=== PATIENT | male | born 1965 | race Caucasian/White ===

== ENCOUNTER 2017-07-08 15:50 | Inpatient (IN) | payer SELFPAY ==
[~2017-07-08] VITALS: Ht 182.9 cm; Wt 78.5 kg
--- NOTE | 2017-07-08 16:02 | NUR ---
BIB AMBULANCE FOR ETOH INTOXICATION. PT IS SLEEPY BUT AROUSES WITH TOUCH. VITAL SIGNS STABLE. PLACED ON CONTINUOUS CARDIAC MONITORING.
[2017-07-08 16:36] LABS: BASOPHILS # (AUTO) 0.1 K/uL (0.0-8.0); BASOPHILS % (AUTO) 1.9 % (0.0-2.0); EOSINOPHILS # (AUTO) 0.1 K/uL (0.0-0.7); EOSINOPHILS % (AUTO) 1.6 % (0.0-7.0); HEMATOCRIT 43.1 % (40-50); HEMOGLOBIN 14.6 G/DL (14.0-18.0); LYMPHOCYTES # (AUTO) 2.1 K/UL (0.8-4.8); LYMPHOCYTES % (AUTO) 32.2 % (20.5-51.5); MEAN CORPUSCULAR HEMOGLOBIN 34.1 UUG (27.0-31.0); MEAN CORPUSCULAR HGB CONC 34 g/dL (32.0-37.0); MEAN CORPUSCULAR VOLUME 100.8 FL (82.0-92.0); MONOCYTES # (AUTO) 0.8 K/UL (0.1-1.30); MONOCYTES % (AUTO) 11.6 % (0.0-11.0); NEUTROPHILS # (AUTO) 3.5 K/UL (1.8-8.9); NEUTROPHILS % (AUTO) 52.7 % (38.5-71.5); PLATELET COUNT (AUTO) 193 K/UL (150-450); RED BLOOD CELL COUNT(AUTO) 4.28 MIL/UL (4.7-6.1); WHITE BLOOD COUNT (AUTO) 6.6 K/UL (4.0-11.2)
[2017-07-08 16:44] LABS: CREATININE 0.8 mg/dL (0.6-1.3); POTASSIUM 3.9 mmol/L (3.5-5.1)
[2017-07-08 16:59] LABS: BILIRUBIN,TOTAL 0.8 mg/dL (0.2-1.0); TOTAL PROTEIN, SERUM 6.6 g/dL (6.4-8.2)
--- NOTE | 2017-07-08 17:14 | NUR ---
PATIENT IN ROOM SLEEPING WITH NO DISTRESS NOTED. ON 2L N/C SATTING AT 97%. NO DISTRESS NOTED.
[2017-07-08] MEDS: IV NS 1000 ML 1,000 ML IV ONE ×2 (17:29→17:30)
[2017-07-08] MEDS ORDERED: IV NS 1000 ML 1,000 ML IV ONE (17:30)
[2017-07-08] MEDS ORDERED: IV NS 1000 ML 1,000 ML IV PRN (18:15)
--- NOTE | 2017-07-08 18:50 | NUR ---
Transfered to 2nd floor Tele via [facility]
--- NOTE | 2017-07-08 18:55 | NUR ---
Received patient from ER, patient is not responding. Vitals recorded, BP recorded as systolic 95/43, patient placed on 4L o2.
[2017-07-08 19:00] VITALS: BP 104/55
[2017-07-08 19:36] VITALS: BP 95/43
[2017-07-08] MEDS ORDERED: IV D5/ 0.9% NACL 1,000 ML IV PRN ×2 (20:15→20:30)
[2017-07-08] MEDS ORDERED: FOLIC ACID 1 MG in IV DEXTROSE 5% 50 ML IV SCH (20:30)
[2017-07-08] MEDS ORDERED: ACETAMINOPHEN 325 MG TABLET PO PRN (20:30)
[2017-07-08] MEDS ORDERED: ONDANSETRON 4 MG/2 ML VIAL IV PRN (20:30)
[2017-07-08] MEDS ORDERED: THIAMINE HCL INJ 100 MG in IV DEXTROSE 5% 50 ML IV SCH (20:30)
[2017-07-08] MEDS: LORAZEPAM 2 MG/1 ML VIAL IV PRN (21:40)
[2017-07-09 00:06] VITALS: BP 125/81
--- NOTE | 2017-07-09 00:39 | NUR ---
RECEIVED PATIENT LETHARGIC IN BED, HE WAS JUST ADMITTED FR ED DUE TO ETOH INTOXICATION AND RHABDOMYOLYSIS. CHANGED IV FLUIDS TO D5 NS AT 100 ML.HR ORDERED. GIVEN IV MEDS ORDERED. CT SCAN BRAIN DONE. PATIENT MENTATION IMPROVED TO ALERT AND ORIENTED X2. GETTING OUT OF BED. BED ALARM TURNED ON. CHECK FROM TIME TO TIME. STARTED ON REG DIET ORDERED. OTHERWISE PT IS SLEEPING AT THIS TIME. KEPT MONITORED. Addendum: 07/10/17 at 0051 by YOUNG MARTINEZ RN GIVEN IV ATIVAN BY THE MARINE ELECT[employer]ICS TECHNICIAN LAST NIGHT ORDERED. SIGNED IN UNDER ANOTHER RN'S ACCOUNT NOTED TO PHARMACIST. DRUG WAS GIVEN TO CORRECT PATIENT DOCUMENTED.
[2017-07-09 04:00] VITALS: BP 122/80
--- NOTE | 2017-07-09 05:30 | NUR ---
NO ALCOHOL WITHDRAWAL NOTED THROUGHOUT THE NIGHT. MENTATION IS MAINTAINED ALERT AND ORIENTED X2-3. VS REMAINED STABLE. KEPT SAFE AND MONITORED.
[2017-07-09 06:35] LABS: BASOPHILS # (AUTO) 0.1 K/uL (0.0-8.0); BASOPHILS % (AUTO) 1.1 % (0.0-2.0); EOSINOPHILS # (AUTO) 0.1 K/uL (0.0-0.7); EOSINOPHILS % (AUTO) 2.2 % (0.0-7.0); HEMOGLOBIN 12.9 G/DL (14.0-18.0); LYMPHOCYTES # (AUTO) 1.8 K/UL (0.8-4.8); LYMPHOCYTES % (AUTO) 37.6 % (20.5-51.5); MEAN CORPUSCULAR HEMOGLOBIN 34.4 UUG (27.0-31.0); MEAN CORPUSCULAR HGB CONC 34 g/dL (32.0-37.0); MEAN CORPUSCULAR VOLUME 101.5 FL (82.0-92.0); MONOCYTES # (AUTO) 0.4 K/UL (0.1-1.30); MONOCYTES % (AUTO) 8.7 % (0.0-11.0); NEUTROPHILS # (AUTO) 2.4 K/UL (1.8-8.9); NEUTROPHILS % (AUTO) 50.4 % (38.5-71.5); PLATELET COUNT (AUTO) 145 K/UL (150-450)
[2017-07-09 06:40] LABS: RED BLOOD CELL COUNT(AUTO) 3.74 MIL/UL (4.7-6.1); WHITE BLOOD COUNT (AUTO) 4.8 K/UL (4.0-11.2)
[2017-07-09 06:53] LABS: CREATININE 0.8 mg/dL (0.6-1.3); MAGNESIUM 1.6 mg/dL (1.8-2.4); PHOSPHOROUS 1.3 mg/dL (2.5-4.9); POTASSIUM 3.2 mmol/L (3.5-5.1)
[2017-07-09] MEDS ORDERED: PANTOPRAZOLE SODIUM 40 MG TABLET.DR PO SCH ×2 (07:00→09:00)
--- NOTE | 2017-07-09 08:26 | NUR ---
pt awake in bed just finished breakfast, asked name pt stated "Michi Garcia" asked , pt stated "[birth year]" asked where pt was pt stated "[facility]" No needs at this time, all safety and comfort measures attended to, call light in reach
[2017-07-09] MEDS ORDERED: MAGNESIUM OXIDE 400 MG TABLET PO ONE (10:15)
[2017-07-09] MEDS ORDERED: POTASSIUM CHLORIDE 20 MEQ TAB.PRT.SR PO ONE (10:30)
[2017-07-09] MEDS: LORAZEPAM 2 MG/1 ML VIAL IV PRN (10:42)
--- NOTE | 2017-07-09 10:45 | NUR ---
TREMORS NOTED, ATIVAN 1MG GIVEN
[2017-07-09 11:39] VITALS: BP 150/88
--- NOTE | 2017-07-09 14:03 | NUR ---
MARU, ARCHAEOLOGY PROFESSOR WENT OT SPEAK WITH PT. PT NOT IN ROOM AND ALL BELONGINGS WERE GONE. PT WAS DISCHARGED HOWEVER PAPERWORK WAS NOT SIGNED AND IV WAS NOT REMOVED. SECURITY WAS CALLED AND ENGINEER PROCESS AWARE Addendum: 07/09/17 at 1410 by DAYO VALLEJO RN IV WAS REMOVED, IT IS IN TRASH CAN.
== END 2017-07-09 13:35 | disposition home or self-care (01) | DRG 897 ==
LOC: EDBD 15:50 → ER 15:54 → TELE 18:45 → EDBD 18:45
DX: F10.129 Alcohol abuse with intoxication, unspecified (principal); M62.82 Rhabdomyolysis; G31.2 Degeneration of nervous system due to alcohol; D75.89 Other specified diseases of blood and blood-forming organs; Y90.8 Blood alcohol level of 240 mg/100 ml or more
CPT/HCPCS: 36415; 70030-TC; 70450; 71010; 83735; 84100; 85025; 85610; 93005; A4663; G0480; J2060; J3411; J3490; J7030; J7042; J7060